=== PATIENT | female | born 1945 | race Caucasian/White ===

== ENCOUNTER 2016-10-16 07:06 | Observation (INO) | payer MEDICARE, BC, OTHER ==
[~2016-10-16] VITALS: Ht 0.5 cm; Wt 80.1 kg
--- NOTE | ~2016-10-16 | H ---
[facility] [place] [address] HISTORY AND PHYSICAL Name: ALDO SANDOVAL Room #: 208-P [facility] Baltazar Hazel#: [id number] Admission: 10/16/16 Attend Phys: Roly Garcia MD Discharge: 10/17/16 Date of : 41 Report #: [id number] THIS REPORT FOR: //name// For History and Physical, please see office documentation/handwritten note in the patient's medical record. <ELECTRONICALLY SIGNED> By: Roly Garcia MD 10/21/16 0830 1127 Roly Garcia MD /
--- NOTE | ~2016-10-16 | D ---
[facility] [place] [address] DISCHARGE SUMMARY Name: ALDO SANDOVAL Room #: 208-P [facility]..#: [id number] Admission: 10/16/16 Attend Phys: Roly Garcia MD Discharge: 10/17/16 Date of : 41 Report #: [id number] THIS REPORT FOR: //name// CC: Roly Garcia Mao Gala DATE OF SERVICE: 10/17/2016 DISCHARGE DIAGNOSIS: Heart block. PROCEDURE PERFORMED: Dual chamber pacemaker implantation. HISTORY OF PRESENT ILLNESS: The patient is a 71-year-old female with normal ejection fraction and with a known left bundle-branch block, recently had a end polisher showing an episode of complete heart block. She was here for dual chamber pacemaker implantation. The patient underwent successful dual chamber pacemaker insertion. The procedure went without any complications. HOSPITAL COURSE: She was monitored overnight, received IV antibiotics. The following day, chest x-ray showed stable lead position with no pneumothorax. Device interrogation, which I reviewed, showed normal device function. Her incision was looking good. She denied any problems with chest pain, shortness of breath, PND, orthopnea. No fevers, chills. PHYSICAL EXAMINATION: HEART: Regular rate and rhythm with no murmurs, rubs, gallops. LUNGS: Clear bilaterally. ABDOMEN: Soft, nontender. EXTREMITIES: No clubbing, cyanosis, edema. SKIN: Her incision site had some mild ecchymosis around the site, but no hematoma. As such, she was deemed stable for discharge home. She was discharged on her same home medications. DISCHARGE INSTRUCTIONS: Reviewed and she will follow up in 7-10 days for site check. <ELECTRONICALLY SIGNED> By: Roly Garcia MD 10/21/16 0830 [id number] [id number] Roly Garcia MD /nt
[2016-10-16] MEDS ORDERED: ASPIR 8181 MG PO (07:22)
[2016-10-16] MEDS ORDERED: CALCIUM 500 +1 EAC5 PO (07:23)
[2016-10-16] MEDS ORDERED: ALEVE220 MG PO (07:24)
[2016-10-16] MEDS ORDERED: FLONASE 0.05%50 MCG NASAL (07:24)
[2016-10-16] MEDS ORDERED: ANTIVERT25 MG PO (07:24)
[2016-10-16] MEDS ORDERED: ALLEGRA-D 12 H1 EAC1 PO (07:24)
[2016-10-16] MEDS ORDERED: FISH OIL 1,001000 M2 PO (07:24)
[2016-10-16] MEDS ORDERED: SUDAFED 12 HOU120 MG PO (07:25)
[2016-10-16] MEDS ORDERED: OMEPRAZOLE 20 M20 M1 PO (07:25)
[2016-10-16] MEDS ORDERED: THERA M PLUS T1 EAC2 PO (07:25)
[2016-10-16] MEDS ORDERED: DIMENHYDRINATE50 MG PO (07:26)
[2016-10-16 07:34] VITALS: BP 170/62
[2016-10-16 07:34] LABS: ABSOLUTE NEUTROPHILS 3.8 thou/uL (1.4-8.2); BASOPHILS 0.5 % (0.0-2.0); HEMATOCRIT 39.9 % (37.0-47.0); HEMOGLOBIN 13.5 gm/dL (12.0-15.0); MCH 31.1 pg (26.0-34.0); MCHC 33.9 g/dL (28.0-37.0); MCV 91.7 fL (80.0-100.0); MONOCYTES 8.3 % (1.0-8.0); PLATELET COUNT 221 thou/uL (150-400); POLYS 48.2 % (36.0-66.0); RBC 4.35 mil/uL (4.20-5.00); RDW 12.4 % (10.5-14.5); WBC 7.9 thou/uL (4.0-11.0)
[2016-10-16 07:40] LABS: MANUAL DIFF NO
[2016-10-16 07:44] LABS: CALCIUM 9.1 mg/dL (8.5-10.1); CREATININE 0.9 mg/dL (0.6-1.0); POTASSIUM 3.8 mmol/L (3.5-5.1)
[2016-10-16 07:46] LABS: APTT 25.2 Seconds (24.5-32.8)
[2016-10-16 11:45] VITALS: BP 163/81
[2016-10-16 14:13] VITALS: BP 142/60
[2016-10-16 16:59] VITALS: BP 149/66
[2016-10-16 20:21] VITALS: BP 138/41
[2016-10-17 03:52] VITALS: BP 131/37
[2016-10-17 10:38] VITALS: BP 131/37
== END 2016-10-17 11:04 | disposition home or self-care (01) ==
LOC: CATH 07:06 → 2N 11:39
PROVIDERS: Internal Medicine Cardiovascular Disease
DX: I49.5 Sick sinus syndrome (principal); I45.9 Conduction disorder, unspecified
CPT/HCPCS: 62110; 62900; 70005

== ENCOUNTER → 2020-02-25 | Outpatient (CLI) | payer MEDICARE, BC, OTHER ==
[~2020-02-25] MED LIST: ALEVE220 MG PO; ALLEGRA-D 12 H1 EAC1 PO; ANTIVERT25 MG PO; ASPIR 8181 MG PO; CALCIUM 500 +1 EAC5 PO; DIMENHYDRINATE50 MG PO; FISH OIL 1,001000 M2 PO; FLONASE 0.05%50 MCG NASAL; OMEPRAZOLE 20 M20 M1 PO; SUDAFED 12 HOU120 MG PO; THERA M PLUS T1 EAC2 PO
== END ==
LOC: SJCVC 13:11
PROVIDERS: ATTEND Internal Medicine
DX: Z45.018 Encounter for adjustment and management of other part of cardiac pacemaker (principal); R94.31 Abnormal electrocardiogram [ECG] [EKG]; I44.7 Left bundle-branch block, unspecified; I10 Essential (primary) hypertension; E78.5 Hyperlipidemia, unspecified; I44.2 Atrioventricular block, complete; C43.62 Malignant melanoma of left upper limb, including shoulder; Z79.899 Other long term (current) drug therapy

== ENCOUNTER → 2020-08-25 | Outpatient (CLI) | payer MEDICARE, BC, OTHER | LOC: SJCVCIMAG 09:03 | PROVIDERS: ATTEND Internal Medicine | DX: I08.1 Rheumatic disorders of both mitral and tricuspid valves (principal); R94.31 Abnormal electrocardiogram [ECG] [EKG]; I10 Essential (primary) hypertension; E78.5 Hyperlipidemia, unspecified; I44.7 Left bundle-branch block, unspecified; I44.2 Atrioventricular block, complete; C43.62 Malignant melanoma of left upper limb, including shoulder; K21.9 Gastro-esophageal reflux disease without esophagitis; M19.90 Unspecified osteoarthritis, unspecified site; M81.0 Age-related osteoporosis without current pathological fracture; Z90.49 Acquired absence of other specified parts of digestive tract; Z98.890 Other specified postprocedural states; Z95.0 Presence of cardiac pacemaker; Z88.8 Allergy status to other drugs, medicaments and biological substances; Z79.82 Long term (current) use of aspirin; Z79.899 Other long term (current) drug therapy ==

== ENCOUNTER → 2021-03-16 | Outpatient (CLI) | payer MEDICARE, BC | LOC: SJCVC 10:00 | PROVIDERS: ATTEND Internal Medicine | DX: R94.31 Abnormal electrocardiogram [ECG] [EKG] (principal); I10 Essential (primary) hypertension; E78.5 Hyperlipidemia, unspecified; I44.7 Left bundle-branch block, unspecified; I44.2 Atrioventricular block, complete; C43.62 Malignant melanoma of left upper limb, including shoulder; Z95.0 Presence of cardiac pacemaker; K21.9 Gastro-esophageal reflux disease without esophagitis; M19.90 Unspecified osteoarthritis, unspecified site; M81.0 Age-related osteoporosis without current pathological fracture; Z79.899 Other long term (current) drug therapy; Z88.2 Allergy status to sulfonamides; Z88.8 Allergy status to other drugs, medicaments and biological substances ==

== ENCOUNTER → 2021-03-28 | Outpatient (CLI) | payer MEDICARE, BC | LOC: SJCVCIMAG 07:41 | PROVIDERS: ATTEND Internal Medicine | DX: I44.7 Left bundle-branch block, unspecified (principal); I10 Essential (primary) hypertension; E78.5 Hyperlipidemia, unspecified; Z95.0 Presence of cardiac pacemaker; Z88.2 Allergy status to sulfonamides; Z88.8 Allergy status to other drugs, medicaments and biological substances; Z79.82 Long term (current) use of aspirin; Z79.899 Other long term (current) drug therapy ==